=== PATIENT | female | born 1945 | race Caucasian/White ===

== ENCOUNTER 2017-03-09 15:48 | Emergency (ER) | payer MEDICARE, MEDICAID ==
[~2017-03-09] VITALS: Ht 157.5 cm; Wt 64.4 kg
--- NOTE | 2017-03-09 16:14 | NUR ---
PT IS IN ROOM #1B. DR ARREDONDO EVALUATED THE PT.
[2017-03-09] MEDS ORDERED: ALBU18HF2 IH (16:15)
[2017-03-09] MEDS ORDERED: AMLO1CAP10 PO (16:15)
[2017-03-09] MEDS ORDERED: ASPI81TA31 PO (16:15)
[2017-03-09] MEDS ORDERED: LORA1TAB PO (16:15)
[2017-03-09] MEDS ORDERED: CLOP75TA33 PO (16:15)
[2017-03-09] MEDS ORDERED: CALC-343 PO (16:15)
[2017-03-09] MEDS ORDERED: LINA145C PO (16:15)
[2017-03-09] MEDS ORDERED: PRAV40TA3 PO (16:15)
[2017-03-09] MEDS ORDERED: MULT1CAP34 PO (16:15)
[2017-03-09] MEDS ORDERED: CHOL200074 PO (16:15)
[2017-03-09] MEDS ORDERED: BUPR150T10 PO (16:15)
[2017-03-09] MEDS ORDERED: ALEN70TA45 PO (16:15)
[2017-03-09] MEDS ORDERED: CARV6.252 PO (16:15)
[2017-03-09] MEDS ORDERED: DEXL60CA3 PO (16:15)
[2017-03-09] MEDS ORDERED: IBUP-1957 PO (16:15)
[2017-03-09 16:27] LABS: BASOPHILS % (AUTO) 0.3 % (0.0-2.0); EOSINOPHILS # (AUTO) 0.1 K/uL (0.0-0.7); EOSINOPHILS % (AUTO) 0.8 % (0.0-7.0); HEMATOCRIT 40.1 % (37-47); HEMOGLOBIN 13.3 G/DL (12.0-16.0); LYMPHOCYTES # (AUTO) 4.5 K/UL (0.8-4.8); MEAN CORPUSCULAR HEMOGLOBIN 30.8 UUG (27.0-31.0); MEAN CORPUSCULAR HGB CONC 33 g/dL (32.0-37.0); MEAN CORPUSCULAR VOLUME 93.1 FL (81.0-99.0); MONOCYTES # (AUTO) 0.8 K/UL (0.1-1.30); MONOCYTES % (AUTO) 8.6 % (0.0-11.0); NEUTROPHILS # (AUTO) 4.2 K/UL (1.8-8.9); NEUTROPHILS % (AUTO) 44.3 % (38.5-71.5); PLATELET COUNT (AUTO) 340 K/UL (150-450); RED BLOOD CELL COUNT(AUTO) 4.31 MIL/UL (4.2-5.4); WHITE BLOOD COUNT (AUTO) 9.6 K/UL (4.0-11.2)
[2017-03-09 16:32] LABS: CREATININE 1.2 mg/dL (0.6-1.3); POTASSIUM 4.3 mmol/L (3.5-5.1)
[2017-03-09 16:44] LABS: BILIRUBIN,TOTAL 0.2 mg/dL (0.2-1.0); TOTAL PROTEIN, SERUM 6.8 g/dL (6.4-8.2)
[2017-03-09 18:29] LABS: *BILIRUBIN,URIN NEGATIVE (NEGATIVE); *BLOOD, URINE NEGATIVE (NEGATIVE); *CLARITY,URINE CLEAR (CLEAR); *COLOR,URINE YELLOW (YELLOW); *KETONES,URINE NEGATIVE (NEGATIVE); *PROTEIN,URINE NEGATIVE (NEGATIVE); *UROBILINOGEN,URINE 0.2 E.U./dl (NORMAL); LEUKOCYTE ESTERASE ,URINE NEGATIVE (NEGATIVE); NITRITE, URINE NEGATIVE (NEGATIVE); PH,URINE 5.5 (5.0-8.0); UGLUCOSE NEGATIVE (NEGATIVE)
[2017-03-09 18:50] LABS: SQUAMOUS EPITHELIAL CELL,UR FEW /HPF (NONE SEEN); WBC,URINE 0-3 /HPF (0-3)
--- NOTE | 2017-03-09 19:23 | NUR ---
PT WAS D/C TO HOME. D/C INSTRUCTIONS GIVEN TO THE PT.
[2017-03-09 19:24] VITALS: BP 136/78
== END 2017-03-09 19:25 | disposition home or self-care (01) ==
LOC: ER 15:49
DX: K57.30 Diverticulosis of large intestine without perforation or abscess without bleeding (principal); I10 Essential (primary) hypertension; E78.00 Pure hypercholesterolemia, unspecified; J44.9 Chronic obstructive pulmonary disease, unspecified; M19.90 Unspecified osteoarthritis, unspecified site; Z95.1 Presence of aortocoronary bypass graft; F17.200 Nicotine dependence, unspecified, uncomplicated; Z79.82 Long term (current) use of aspirin; Z88.0 Allergy status to penicillin
CPT/HCPCS: 36415; 70030-TC; 71010; 83690; 85025; 85610; 93005; A4663; J2270; J2405; J3490; J7030; J7050; Q9967

== ENCOUNTER 2021-07-01 20:56 | Inpatient (IN) | payer OTHER ==
[~2021-07-01] VITALS: Ht 157.5 cm; Wt 69.4 kg
[~2021-07-01 20:56] MED LIST: ALBU18HF2 IH; ALEN70TA80 PO; AMLO1CAP93 PO; ASPI81TA31 PO; BUPR150T10 PO; CALC-343 PO; CARV6.252 PO; CHOL200074 PO; CLOP75TA33 PO; DEXL60CA3 PO; IBUP-1957 PO; LINA145C PO; LORA1TAB PO; MULT1CAP34 PO; PRAV40TA3 PO
[2021-07-01] MEDS ORDERED: ONDANSETRON ODT 4 MG TAB.RAPDIS SL ONE (21:45)
[2021-07-01] MEDS ORDERED: HYDROMORPHONE 1 MG/1 ML DISP.SYRIN IM ONE (21:45)
[2021-07-01] MEDS ORDERED: HYDROMORPHONE 1 MG/1 ML DISP.SYRIN ONE (21:51)
[2021-07-01] MEDS ORDERED: ONDANSETRON ODT 4 MG TAB.RAPDIS ONE (21:51)
[2021-07-01] MEDS ORDERED: HYDR-4209 PO (22:45)
[2021-07-01] MEDS ORDERED: ONDA4TAB5 PO (22:45)
[2021-07-01] MEDS ORDERED: METOCLOPRAMIDE HCL 10 MG/2 ML VIAL ONE (22:58)
[2021-07-01] MEDS ORDERED: METOCLOPRAMIDE HCL 10 MG/2 ML VIAL IM ONE (23:00)
[2021-07-02] MEDS ORDERED: METOCLOPRAMIDE HCL 10 MG/2 ML VIAL IV ONE
[2021-07-02 00:12] LABS: HEMATOCRIT 41.2 % (31.2-41.9); MEAN CORPUSCULAR HEMOGLOBIN 32.5 uug (24.7-32.8); MEAN CORPUSCULAR VOLUME 95.9 fL (75.5-95.3); PLATELET COUNT (AUTO) 254 K/uL (179-408)
[2021-07-02] MEDS ORDERED: METOCLOPRAMIDE HCL 10 MG/2 ML VIAL ONE (00:17)
[2021-07-02 00:38] LABS: CREATININE 0.9 mg/dL (0.6-1.3); POTASSIUM 4.2 mmol/L (3.5-5.1)
[2021-07-02 00:40] LABS: BILIRUBIN,DIRECT 0.1 mg/dL (0.0-0.2); BILIRUBIN,TOTAL 0.2 mg/dL (0.2-1.0)
[2021-07-02 00:41] LABS: TOTAL PROTEIN, SERUM 6.9 g/dL (6.4-8.2)
[2021-07-02] MEDS ORDERED: LORA-259 PO (00:42)
[2021-07-02] MEDS ORDERED: LOVA40TA2 PO (00:42)
[2021-07-02] MEDS ORDERED: MORPHINE SULFATE 2 MG/1 ML DISP.SYRIN IV PRN (06:30)
[2021-07-02] MEDS ORDERED: Z GUARD REMEDY PASTE 57 GM TUBE TOP PRN (06:30)
[2021-07-02] MEDS ORDERED: HYDROCODONE/APAP 5-325MG TABLET PO PRN (06:30)
[2021-07-02] MEDS ORDERED: ACETAMINOPHEN 325 MG TABLET PO PRN (06:30)
[2021-07-02] MEDS ORDERED: MAGNESIUM HYDROXIDE 30 ML LIQUID UDC PO PRN (06:30)
[2021-07-02] MEDS ORDERED: LORAZEPAM 1 MG TABLET PO PRN (06:30)
[2021-07-02] MEDS ORDERED: ONDANSETRON 4 MG/2 ML VIAL IV PRN (06:30)
[2021-07-02] MEDS ORDERED: ALBUTEROL SULFATE 8 GM HFA.AER.AD IH PRN (06:30)
[2021-07-02] MEDS ORDERED: PANTOPRAZOLE SODIUM 40 MG TABLET.DR PO SCH (07:00)
[2021-07-02] MEDS ORDERED: ALBUTEROL SULFATE 2.5 MG/3 ML NEBU NEB PRN (07:15)
[2021-07-02] MEDS ORDERED: CARVEDILOL 6.25 MG TABLET PO SCH ×2 (08:00→18:00)
[2021-07-02] MEDS ORDERED: CARVEDILOL 6.25 MG TABLET ONE (08:51)
[2021-07-02] MEDS ORDERED: PANTOPRAZOLE SODIUM 40 MG TABLET.DR PO ONE (08:52)
[2021-07-02] MEDS ORDERED: Medication Not On Formulary EA (Multivitamins (Multivitamin) 1 EACH) PO SCH (09:00)
[2021-07-02] MEDS ORDERED: CLOPIDOGREL 75 MG TABLET PO SCH ×2 (09:00→21:00)
[2021-07-02] MEDS ORDERED: BENAZEPRIL HCL 20 MG TABLET PO SCH (09:00)
[2021-07-02] MEDS ORDERED: ENOXAPARIN SODIUM 40 MG/0.4 ML DISP.SYRIN SQ SCH (09:00)
[2021-07-02] MEDS ORDERED: AMLODIPINE 10 MG TABLET PO SCH (09:00)
[2021-07-02] MEDS ORDERED: CHOLECALCIFEROL 1,000 UNIT TABLET PO SCH (09:00)
[2021-07-02] MEDS ORDERED: MULTIVITAMINS,THERAPEUTIC TABLET PO SCH (09:00)
[2021-07-02] MEDS ORDERED: ASPIRIN 81 MG TAB.CHEW PO SCH (09:00)
[2021-07-02] MEDS ORDERED: ENOXAPARIN SODIUM 40 MG/0.4 ML DISP.SYRIN SQ ONE (09:26)
[2021-07-02] MEDS ORDERED: CLOPIDOGREL 75 MG TABLET ONE (09:27)
[2021-07-02] MEDS ORDERED: CHOLECALCIFEROL 1,000 UNIT TABLET ONE (09:27)
[2021-07-02] MEDS ORDERED: AMLODIPINE 5 MG TABLET ONE (09:27)
[2021-07-02] MEDS ORDERED: BENAZEPRIL HCL 10 MG TABLET ONE (09:27)
[2021-07-02 12:43] VITALS: BP 129/60
[2021-07-02] MEDS ORDERED: AMLO-62 PO (14:22)
[2021-07-02] MEDS ORDERED: LOVASTATIN 80 MG PO SCH (21:00)
[2021-07-02] MEDS ORDERED: ATORVASTATIN 20 MG TABLET PO SCH (21:00)
[2021-07-03] MEDS ORDERED: BENAZEPRIL HCL 20 MG TABLET PO SCH (09:00)
[2021-07-05] MEDS ORDERED: ALENDRONATE SODIUM 70 MG TABLET PO SCH (06:00)
== END 2021-07-02 12:00 | disposition left against medical advice (07) | DRG 605 ==
LOC: ER 20:59 → TRANSITION 07-02 07:44
PROVIDERS: ADMIT Student in an Organized Health Care Education/Training Program; ATTEND Student in an Organized Health Care Education/Training Program
DX: S80.01XA Contusion of right knee, initial encounter (principal); W01.0XXA Fall on same level from slipping, tripping and stumbling without subsequent striking against object, initial encounter; Y92.009 Unspecified place in unspecified non-institutional (private) residence as the place of occurrence of the external cause; Z20.822 Contact with and (suspected) exposure to COVID-19
CPT/HCPCS: 36415; 72170; 85025; 85730; 97161; A4663; G0378; J1170; J1650; J2765; J3490; Q0162